=== PATIENT | male | born 1985 | race Caucasian/White ===

== ENCOUNTER 2017-09-03 22:41 | Emergency (ER) | payer SELFPAY | END 2017-09-04 01:03 | disposition left against medical advice (07) | LOC: FTE 22:41 | DX: Z53.21 Procedure and treatment not carried out due to patient leaving prior to being seen by health care provider (principal) ==

== ENCOUNTER 2017-11-16 17:49 | Emergency (ER) | payer SELFPAY ==
[2017-11-16] MEDS: IBUPROFEN 600 MG TAB PO (19:05)
== END 2017-11-16 19:48 | disposition home or self-care (01) ==
LOC: FTE 19:48
DX: S33.5XXA Sprain of ligaments of lumbar spine, initial encounter (principal); V87.7XXA Person injured in collision between other specified motor vehicles (traffic), initial encounter
CPT/HCPCS: 72040; 72100; 99283-25